=== PATIENT | male | born 1955 | race Caucasian/White ===

== ENCOUNTER → 2016-09-15 | Outpatient (CLI) | payer BC ==
--- NOTE | 2016-09-15 16:56 | PCVCIMAG ---
APPROVED REPORT Exam: Stress Echocardiogram Indication: Dyspnea,shortness of breath,fatigue,diabetes Patient Location: Echo lab Stress Nurse: Rema Mcneil RN Status: routine HR: 98 bpm Rhythm: NSR Medical History Medical History: asthma,, Diabetic Insulin, Hyperlipidemia Exercise History: Physically active Procedure The patient underwent an Exercise Stress Test using the Grant Protocol. Blood pressure, heart rate, and EKG were monitored. An Echocardiogram was performed by instrument technician helper in four stages in quad fashion. At peak stress, four selected images were obtained and placed side by side with resting images for comparison. Stress Test Details HR Resting HR: 98 bpmMax Heart Rate (APMHR): 161 bpm Max HR Achieved: 162 bpmTarget HR (85% APMHR): 136 bpm % of APMHR: 100 Recovery HR: 106 bpm HR response to stress: Normal HR response to stress BP Resting BP: 138/90 mmHg Max BP: 162/80 mmHg Recovery BP: 152/76 mmHg ECG Resting ECG: Sinus Rhythm, nonspecific ST-T abnormalities Stress ECG: Sinus Rhythm, nonspecific ST-T abnormalities ST Change: Nondiagnostic due to resting ST abnormalities Arrhythmia: Rare APC's, Rare pvcs Recovery Arrhythmia: none Clinical Reason for Termination: Maximal effort Stress Symptoms: none Exercise duration: 9 min sec Exercise capacity: 10.4 METs Overall Exercise Capacity for Age: Average Pre-Stress Echo The resting Echocardiogram showed normal left ventricular contractility with an estimated Ejection Fraction of about >55%. Normal wall motion in all segments on baseline images. Post-Stress Echo The stress Echocardiogram showed normal left ventricular contractility with an estimated Ejection Fraction of about 65-70%. Normal augmentation of wall motion in all segments on post stress images. Clinical No clinical or ECG evidence for ischemia. Conclusion Clinical Response: Non-ischemic Exercise Capacity: Average Stress ECG Response: Indeterminant Stress Echo Images: Non-ischemic The left ventricle is normal in size and wall thickness in both the rest and stress images. Normal stress echocardiogram with maximal exercise stress. No echocardiographic evidence for exercise induced ischemia. No prior study available for comparison. Other Information Study Quality: Good <Conclusion> The left ventricle is normal in size and wall thickness in both the rest and stress images. Normal stress echocardiogram with maximal exercise stress. No echocardiographic evidence for exercise induced ischemia.
--- NOTE | 2016-09-15 16:56 | PCVCIMAG ---
APPROVED REPORT Study performed: 09/15/2016 13:43:14 EXAM: Comprehensive 2D, Doppler, and color-flow Echocardiogram Patient Location: Echo lab Status: routine Other Information Study Quality: Adequate Indications Diabetes Dyspnea Fatigue 2D Dimensions IVSd: 8.31 (7-11mm)LVOT Diam: 21.35 (18-24mm) LVDd: 47.02 mm PWd: 10.09 (7-11mm)Ascending Ao: 32.28 (22-36mm) LVDs: 28.17 (25-40mm) Left Atrium: 33.61 (27-40mm) Aortic Root: 23.19 mm LV Single Plane 4CH: 50.34 % LV Single Plane 2CH: 63.86 %Lanza's LVEF: 57.10 % Biplane EF: 58.2 % Volumes Left Atrial Volume (Systole) Single Plane 4CH: 36.68 mLSingle Plane 2CH: 32.78 mL LA ESV Index: 19.00 mL/m2 Aortic Valve AoV Peak Julito.: 1.45 m/s AO Peak Gr.: 8.38 mmHgLVOT Max P.18 mmHg LVOT Max V: 0.89 m/s ISAK Vmax: 2.20 cm2 Mitral Valve E/A Ratio: 1.0 MV Decel. Time: 127.54 ms MV E Max Julito.: 0.71 m/s MV A Julito.: 0.71 m/s MV PHT: 56.05 ms MVA (PHT): 3.93 cm2 IVRT: 84.20 ms Pulmonary Valve PV Peak Julito.: 1.19 m/sPV Peak Gr.: 5.65 mmHg Pulmonary Vein P Vein S: 0.62 m/sP Vein A: 0.36 m/s P Vein D: 0.50 m/sP Vein A Dur.: 65.7 msec P Vein S/D Ratio: 1.24 Tricuspid Valve TR Peak Julito.: 2.02 m/s TR Peak Gr.: 16.28 mmHg TV Vmax: 0.53 m/s Left Ventricle The left ventricle is normal size. There is normal LV segmental wall motion. There is normal left ventricular wall thickness. Left ventricular systolic function is normal. The left ventricular ejection fraction is within the normal range. Grade I - abnormal relaxation pattern. Right Ventricle The right ventricle is normal size. The right ventricular systolic function is normal. Atria The left atrium size is normal. The right atrium size is normal. Aortic Valve The aortic valve is normal in structure. No aortic regurgitation is present. There is no aortic valvular stenosis. Mitral Valve The mitral valve is normal in structure. Trace mitral regurgitation. No evidence of mitral valve stenosis. Tricuspid Valve The tricuspid valve is normal in structure. There is trivial tricuspid valve regurgitation noted with a PA pressure of 23mmHg. Pulmonic Valve The pulmonary valve is normal in structure. There is no pulmonic valvular regurgitation. Great Vessels The aortic root is normal in size. IVC is normal in size and collapses with >50% inspiration Pericardium There is no pericardial effusion. <Conclusion> The left ventricle is normal size. Left ventricular systolic function is normal. Grade I - abnormal relaxation pattern. The right ventricle is normal size. The left atrium size is normal. The aortic valve is normal in structure. Trace mitral regurgitation. There is trivial tricuspid valve regurgitation noted with a PA pressure of 23mmHg. There is no pericardial effusion.
== END | disposition home or self-care (01) ==
LOC: PCVCIMAG 13:33
PROVIDERS: ATTEND Internal Medicine Cardiovascular Disease
DX: I08.1 Rheumatic disorders of both mitral and tricuspid valves (principal); E78.00 Pure hypercholesterolemia, unspecified; K21.9 Gastro-esophageal reflux disease without esophagitis; E11.9 Type 2 diabetes mellitus without complications; J45.909 Unspecified asthma, uncomplicated; Z79.84 Long term (current) use of oral hypoglycemic drugs; Z79.899 Other long term (current) drug therapy
CPT/HCPCS: 93306; 93351; G0463